=== PATIENT | male | born 1985 | race Caucasian/White ===

== ENCOUNTER 2019-05-07 14:59 | Emergency (ER) | payer OTHER ==
--- NOTE | 2019-05-07 16:31 | ER Document Report ---
ED Medical Screen (RME) - General Chief Complaint: Eye Injury Stated Complaint: RIGHT EYE INJURY Time Seen by Provider: 05/07/19 16:15 Mode of Arrival: Ambulatory Information source: Patient Notes: Otherwise healthy 33-year-old male presenting with concern for possible foreign body in his right eye. Patient reports he was working on some metal earlier today when he believes this occurred. He states there is a foreign body at the 3:00 location of the right eye. Denies any visual disturbance, denies any pain. Black speck noted at the 3 o'clock position on the eye. I have greeted and performed a rapid initial assessment of this patient. A comprehensive ED assessment and evaluation of the patient, analysis of test results and completion of the medical decision making process will be conducted by additional ED providers. I have specifically instructed the patient or family members with the patient to immediately return to any nursing staff should anything change in the patient's condition or with their chief complaint. - Related Data Allergies/Adverse Reactions: No Known Allergies Allergy (Verified 05/07/19 16:05) Past Medical History - Social History Frequency of alcohol use: None Drug Abuse: None Physical Exam - Vital signs Vitals: Temp Pulse Resp BP Pulse Ox 97.8 F 76 16 132/83 H 98 05/07/19 15:13 05/07/19 15:13 05/07/19 15:13 05/07/19 15:13 05/07/19 15:13 Course - Vital Signs Vital signs: Temp Pulse Resp BP Pulse Ox 97.8 F 76 16 132/83 H 98 05/07/19 15:13 05/07/19 15:13 05/07/19 15:13 05/07/19 15:13 05/07/19 15:13
[2019-05-07] MEDS ORDERED: TETRACAINE HCL 0.5% OPH SOLN 4 ML OD ONE (18:54)
--- NOTE | 2019-05-07 19:21 | ER Document Report ---
ED General - General Chief Complaint: Eye Injury Stated Complaint: RIGHT EYE INJURY Time Seen by Provider: 05/07/19 16:15 Primary Care Provider: EGOVANNA REID DO [ACTIVE STAFF] - Follow up tomorrow (Call tomorrow morning at 8am. ) [facility] - Follow up in 3-5 days Mode of Arrival: Ambulatory Notes: 33-year-old male presents with foreign body in his right eye. Patient states he was working on some metal and was wearing eye protection. Patient states he did not notice the foreign body but states someone else noticed it and told him about it. Patient denies wearing any glasses or contacts currently. Patient denies any visual changes. - Related Data Allergies/Adverse Reactions: No Known Allergies Allergy (Verified 05/07/19 16:05) Past Medical History - General Information source: Patient - Social History Smoking Status: Current Every Day Smoker Frequency of alcohol use: None Drug Abuse: None Family History: None Patient has suicidal ideation: No Patient has homicidal ideation: No Review of Systems - Review of Systems Notes: Constitutional: Negative for fever. HENT: Negative for sore throat. Eyes: Positive for foreign body sensation/eye pain. Negative for visual changes. Cardiovascular: Negative for chest pain. Respiratory: Negative for shortness of breath. Gastrointestinal: Negative for abdominal pain, vomiting or diarrhea. Genitourinary: Negative for dysuria. Musculoskeletal: Negative for back pain. Skin: Negative for rash. Neurological: Negative for headaches, weakness or numbness. 10 point ROS negative except as marked above and in HPI. Physical Exam - Vital signs Vitals: Temp Pulse Resp BP Pulse Ox 97.8 F 76 16 132/83 H 98 05/07/19 15:13 05/07/19 15:13 05/07/19 15:13 05/07/19 15:13 05/07/19 15:13 - Notes Notes: GENERAL: Well-appearing, well-nourished and in no acute distress. HEAD: Atraumatic, normocephalic. EYES: Right conjunctiva mildly erythematous, 0.1 mm foreign body seen at 3'o clock position. Fluorescein exam reveals no corneal abrasion or ulcer. No dendrites seen. Pupils equal round and reactive to light, extraocular movements intact, sclera anicteric, L conjunctiva are normal. NECK: Normal range of motion, supple without lymphadenopathy or JVD. EXTREMITIES: Normal range of motion, no pitting or edema. No clubbing or cyanosis. NEUROLOGICAL: Cranial nerves II through XII grossly intact. Normal speech, normal gait. PSYCH: Normal mood, normal affect. SKIN: Warm, Dry, normal turgor, no rashes or lesions noted. Course - Re-evaluation Re-evalutation: 05/07/19 33-year-old male presents with obvious foreign body at 3 o'clock position in his right eye. No visual changes. Fluorescein exam reveals no corneal abrasion/ulcers or dendrites. Visual acuity within normal limits. 05/07/19 19:[address] Reid, telephone sales representative transportation aide, who recommended an antibiotic ointment and having patient call his office at 8 AM tomorrow for an appointment as soon as possible. Dr. Reid states that [facility] however patient may have to call to get approval. 05/07/19 19:[address] Reid and the importance of following up tomorrow. Patient given erythromycin ointment prescription. Strict return precautions given. Patient voices understanding and agrees with plan of care. - Vital Signs Vital signs: Temp Pulse Resp BP Pulse Ox 97.7 F 67 16 122/71 94 05/07/19 19:29 05/07/19 19:29 05/07/19 19:29 05/07/19 19:29 05/07/19 19:29 Discharge - Discharge Clinical Impression: Foreign body of right eye Qualifiers: Encounter type: initial encounter Qualified Code(s): T15.91XA - Foreign body on external eye, part unspecified, right eye, initial encounter Condition: Stable Disposition: HOME, SELF-CARE Instructions: Corneal Foreign Body ([facility]) Additional Instructions: We called Dr. Reid, the eye doctor on-call today. He recommended antibiotic ointment which was prescribed to you. He recommends calling his office at 8 AM tomorrow for follow-up tomorrow. Return immediately to ER if you start having any worsening symptoms, including visual changes, worsening pain, inability to see, or any other symptoms that are concerning to you. Prescriptions: Erythromycin Base [Erythromycin Oph 1 gm Oint Ud] 1 applic OP QID #1 tube Referrals: [facility] - Follow up in 3-5 days GEOVANNA REID DO [ACTIVE STAFF] - Follow up tomorrow (Call tomorrow morning at 8am. )
[2019-05-07 19:29] VITALS: BP 122/71
== END 2019-05-07 19:32 | disposition home or self-care (01) ==
LOC: ER 14:59
DX: T15.91XA Foreign body on external eye, part unspecified, right eye, initial encounter (principal); X58.XXXA Exposure to other specified factors, initial encounter; F17.200 Nicotine dependence, unspecified, uncomplicated
CPT/HCPCS: 99283; J3490

== ENCOUNTER 2019-09-10 18:54 | Emergency (ER) | payer OTHER ==
[2019-09-10 20:48] LABS: APPEARANCE,URINE SLIGHTLY-CLOUDY; BILIRUBIN,URINE NEGATIVE (NEGATIVE); COLOR,URINE YELLOW; GLUCOSE, URINE NEGATIVE (NEGATIVE); KETONES,URINE NEGATIVE (NEGATIVE); LEUKOCYTE ESTERASE,URINE NEGATIVE (NEGATIVE); NITRITE,URINE NEGATIVE (NEGATIVE); PROTEIN,URINE NEGATIVE (NEGATIVE); URINE SPECIFIC GRAVITY 1.002; UROBILINOGEN,URINE NEGATIVE mg/dL (<2.0)
[2019-09-10 21:02] LABS: URINE AMPHETAMINES SCREEN NEGATIVE; URINE BARBITURATES SCREEN NEGATIVE; URINE BENZODIAZEPINES SCREEN NEGATIVE; URINE COCAINE SCREEN NEGATIVE; URINE MARIJUANA (THC) SCREEN NEGATIVE; URINE METHADONE SCREEN NEGATIVE; URINE PHENCYCLIDINE SCREEN NEGATIVE
--- NOTE | 2019-09-10 21:12 | ER Document Report ---
ED General - General Chief Complaint: Suicidal Ideation Stated Complaint: ANXIETY Time Seen by Provider: 09/10/19 21:07 Primary Care Provider: [facility] [[facility]] - Follow up as needed Information source: Patient TRAVEL OUTSIDE OF THE [place] IN LAST 30 DAYS: No - HPI Onset: Other - over the last several days for SI but has been feeling depressed for months Onset/Duration: Gradual Severity: Moderate Pain Level: 3 Associated symptoms: Other - Depressed, SI Exacerbated by: Denies Relieved by: Denies Similar symptoms previously: Yes - patient has history of depression Recently seen / treated by doctor: No Notes: 33 year old male with a history of Sjogrens who is maintained on Plaquenil here in the ER for depression and suicidal ideation. The patient says he has too much going on with his life right now and he is not sure he can manage. The patient tells me he no longer wants to kill himself but he told nursing and mental health staff that he has a gun and was thinking of killing himself. - Related Data Allergies/Adverse Reactions: No Known Allergies Allergy (Verified 05/07/19 16:05) Past Medical History - General Information source: Patient - Social History Smoking Status: Current Every Day Smoker Frequency of alcohol use: Occasional Drug Abuse: None Lives with: Family Family History: None Patient has homicidal ideation: Yes Review of Systems - Review of Systems Constitutional: No symptoms reported EENT: No symptoms reported Cardiovascular: No symptoms reported Respiratory: No symptoms reported Gastrointestinal: No symptoms reported Genitourinary: No symptoms reported Male Genitourinary: No symptoms reported Musculoskeletal: No symptoms reported Skin: No symptoms reported Hematologic/Lymphatic: No symptoms reported Neurological/Psychological: Depression, Suicidal ideation -: Yes All other systems reviewed and negative Physical Exam - Vital signs Vitals: Temp Pulse Resp BP Pulse Ox 98.1 F 77 18 117/82 97 09/10/19 19:02 09/10/19 19:02 09/10/19 19:02 09/10/19 19:02 09/10/19 19:02 - Notes Notes: GENERAL: Well-appearing, well-nourished and in distress due to psychiatric reasons. HEAD: Atraumatic, normocephalic. EYES: Pupils equal round and reactive to light, extraocular movements intact, sclera anicteric, conjunctiva are normal. ENT: TMs normal, nares patent, oropharynx clear without exudates. Moist mucous membranes. NECK: Normal range of motion, supple without lymphadenopathy or JVD. LUNGS: Breath sounds clear to auscultation bilaterally and equal. No wheezes rales or rhonchi. HEART: Regular rate and rhythm without murmurs, rubs or gallops. ABDOMEN: Soft, nontender, normoactive bowel sounds. No guarding, no rebound. No masses appreciated. EXTREMITIES: Normal range of motion, no pitting or edema. No clubbing or cyanosis. NEUROLOGICAL: Cranial nerves II through XII grossly intact. Normal speech, normal gait. PSYCH: Depressed, active SI with a plan. SKIN: Warm, Dry, normal turgor, no rashes or lesions noted. Course - Re-evaluation Re-evalutation: 09/10/19 21:39 The patient is here for suicidal ideation and depression. Mental Health saw the patient and they think he needs inpatient care. The patient thought about leaving and when he expressed this interest Mental Health requested I fill out the IVC paperwork. Plan is for patient to be medically cleared and then likely psych placement. Patient is a [facility] so [facility]. 09/11/19 00:20 The patient is medically clear and awaiting psych dispo at this time. - Vital Signs Vital signs: Temp Pulse Resp BP Pulse Ox 98.1 F 77 18 117/82 97 09/10/19 19:37 09/10/19 19:02 09/10/19 19:02 09/10/19 19:02 09/10/19 19:02 - Laboratory Result Diagrams: 09/10/19 21:50 09/10/19 21:50 Laboratory results interpreted by me: 09/10/19 21:50 Potassium 3.4 L BUN 3 L Salicylates < 1.0 L Acetaminophen < 10 L Discharge - Discharge Clinical Impression: Suicidal ideation Condition: Stable Disposition: OTHER Referrals: [facility] [[facility] - Follow up as needed
[2019-09-10] MEDS ORDERED: HALOPERIDOL 5 MG TABLET PO PRN (21:36)
[2019-09-10] MEDS ORDERED: HALOPERIDOL LACTATE INJ 5 MG/1 ML VIAL IM PRN (21:36)
[2019-09-10] MEDS ORDERED: BUSPIRONE HCL 10 MG TABLET PO SCH (22:00)
[2019-09-10] MEDS ORDERED: CLONIDINE HCL 0.1 MG TABLET PO SCH (22:00)
[2019-09-10] MEDS ORDERED: VENLAFAXINE HCL 25 MG TABLET PO SCH (22:00)
[2019-09-10 22:05] LABS: ABSOLUTE BASOPHILS # (AUTO) 0.1 10^3/uL (0.0-0.2); ABSOLUTE EOSINOPHILS # (AUTO) 0.3 10^3/uL (0.0-0.6); ABSOLUTE LYMPHOCYTES (AUTO) 3.5 10^3/uL (0.5-4.7); ABSOLUTE MONOCYTES (AUTO) 0.5 10^3/uL (0.1-1.4); ABSOLUTE NEUT (AUTO) 4.6 10^3/uL (1.7-8.2); BASOPHILS % (AUTO) 0.6 % (0-2); EOSINOPHILS % (AUTO) 3.7 % (0-6); HEMATOCRIT 44.1 % (37.9-51.0); HEMOGLOBIN 15.7 g/dL (13.5-17.0); LYMPHOCYTES % (AUTO) 39.1 % (13-45); MEAN CORPUSCULAR HEMOGLOBIN 32.3 pg (27.0-33.4); MEAN CORPUSCULAR HGB CONC 35.6 g/dL (32.0-36.0); MEAN CORPUSCULAR VOLUME 91 fl (80-97); MONOCYTES % (AUTO) 5.5 % (3-13); PLATELET COUNT 217 10^3/uL (150-450); RED BLOOD COUNT 4.85 10^6/uL (4.35-5.55); RED CELL DISTRIBUTION WIDTH 12.6 % (11.5-14.0); SEGMENTED NEUTROPHILS % (AUTO) 51.1 % (42-78); TOTAL CELLS COUNTED % (AUTO) 100 %
[2019-09-10 22:26] LABS: ALBUMIN 4.4 g/dL (3.5-5.0); ALKALINE PHOSPHATASE 59 U/L (38-126); ANION GAP 7 (5-19); ASPARTATE AMINO TRANSFERASE 24 U/L (17-59); BILIRUBIN,TOTAL 0.6 mg/dL (0.2-1.3); BLOOD UREA NITROGEN 3 mg/dL (7-20); CALCIUM 9.7 mg/dL (8.4-10.2); CARBON DIOXIDE 30 mmol/L (22-30); CHLORIDE 102 mmol/L (98-107); GLUCOSE 102 mg/dL (75-110); POTASSIUM 3.4 mmol/L (3.6-5.0); TOTAL PROTEIN 7.4 g/dL (6.3-8.2)
[2019-09-10 22:27] LABS: ACETAMINOPHEN < 10 ug/mL (10-30); ALCOHOL < 10 mg/dL (NONE DETECTED); SALICYLATE < 1.0 mg/dL (2.0-20.0)
[2019-09-11] MEDS ORDERED: VENLAFAXINE HCL 25 MG TABLET ONE (00:39)
--- NOTE | 2019-09-11 06:58 | PSYCHOLOGICAL NOTE ---
Psych Note - Psych Note Date seen by psych provider: 09/10/19 Time seen by psych provider: 19:45 - [id number] Psych Note: Presenting Problem: Patient is a 33 year old male who presented to the [facility] ED today via EMS after [facility] called them due to suicidal ideation. Patient told Attending ED Nurse he's been depressed and was feeling hopeless and worthless earlier, and admitted to suicidal ideation with plan to shoot self in the head with his 9MM. UDS negative for all substances tested for. Patient was standing in the far back left corner of room. He remained there during evaluation. Patient identified he saw his [place] counselor this morning, was having a panic attack that worsened throughout the day, tried calling [facility] counselor later but spoke to a different therapist who recommended he go to [facility]. He stated he was in the ED because "I'm sad, I had appointment with my counselor at the [facility] this morning, had a panic attack all day that worsened throughout the day, I called my [place] counselor again but spoke to a different counselor Luis who recommended I go to [facility] so I did and ended up here." Patient acknowledged anxiety and panic attacks stating "I usually have them under control." When asked about being on medication for the anxiety, depression or anything else he said "I am on medication for nightmares, but I haven't gone anywhere to get medications." Patient was tearful throughout evaluation. When asked about thoughts of wanting to hurt/harm/kill self he said in a soft almost whispered tone "I don't want to." When asked if he has the thoughts he nodded yes and began crying more. He denied previous SI attempts. He acknowledged he was hospitalized "when I was younger for anxiety now that you mention it." He stated he was in the [facility] for 15 years and has been out for 3 years now. When asked about his openness to medication he stated "I want to be happy, I miss my daughter, I miss seeing her everyday, She lives with her mother here in [place], I miss my girls." When asked when his family separa lewis he said "December." When made aware of IVC and plan of care patient became irritable. He stated he "just had a bad day and feels better now." During this time he was in the bed. He commented "everyone has SI thoughts who doesn't." He was confronted about having thoughts, a plan, means and access. When reminded he told medical staff he was going to shoot self in head with his 9MM he responded "it's the only weapon I have." Patient was alert and oriented to self, person, place, time and situation. Mood was depressed with congruent affect as evidenced by tearful and crying. Presentation seemed guarded via body language (standing in far back left corner of room, slow to respond at first) but did answer all questions when addressed. He endorsed suicidal ideation to medical staff saying he had a plan to shoot self in the head with his 9MM, told this clinician "I don't want to" but admitted to having thoughts and denied previous attempts. Patient did not appear to be responding to internal stimuli as evidenced by fair eye contact and answering questions appropriately when addressed. Thought processes were linear. Conversational speech was within normal limits for rate, tone and prosody. Intellectual abilities are estimated to be average. Insight, judgment and impulse control were poor as evidenced by increased depression and anxiety with suicidal ideation (plan to shoot self in head with his 9MM). Diagnosis: Suicidal Ideation with plan to shoot self in head with his 9MM History of PTSD and Anxiety per patient Medication recommendations made by the psychiatric medication provider Dr. Arti ARANGO., includes: Add Buspar 5MG Po twice a day for anxiety/calming effect/depression/sleep Add Effexor 37.5MG PO twice a day for depression/focus/increase energy Add Clonidine 0.1MG PO at night for sleep/nightmares Add Haldol 5MG PO/IM every six hours as needed for agitation/anxiety Impression/Plan: Recommendation for FULL IVC. Patient endorsed to medical staff increased depression, feelings of worthlessness and hopelessness, as well as suicidal ideation with a plan to shoot self in head with his 9MM. Patient has a history of PTSD, Anxiety and Depression. He reported he is only on medication for nightmares and hasn't been anywhere for other medications (he told medical staff he hasn't had medication since June, it was for PTSD but it was not working per documentation). He reported he spoke to his counselor at the [facility] today due to panic attack that worsened throughout the day and had been instructed to go to [facility] which he did. Consulted with Dr. Garcia regarding the management and care of patient. ED Physician in agreement with recommendations.
[2019-09-11 15:18] VITALS: BP 124/70
--- NOTE | 2019-09-11 15:20 | ER Document Report ---
Doctor's Note Notes: 09/11/19 15:19 Patient continues to state that he frequently thinks about being suicidal and does not understand why this is a problem. Patient continues to state that he does not think this is unusual. States that he thinks everybody thinks about killing themselves. Patient has no insight into his disease process at this time. Patient has been accepted to the [facility]. Patient will be transported. Law enforcement is here for transport at this time. GENERAL: Alert, interacts well. No acute distress. HEAD: Normocephalic, atraumatic EYES: Pupils equal, round and reactive to light, extraocular movements intact. ENT: Oral mucosa moist, tongue midline. NECK: Full range of motion, supple, trachea midline. LUNGS: no respiratory distress. EXTREMITIES: Moves all 4 extremities spontaneously, no edema. No cyanosis. NEUROLOGICAL: Alert and oriented x3, normal speech. PSYCH: Angry . SKIN: Warm, Dry, normal turgor, no rashes or lesions noted.
--- NOTE | 2019-09-11 15:32 | EKG REPORT ---
SEVERITY:- ABNORMAL ECG - SINUS RHYTHM ST ELEVATION SUGGESTS NORMAL VARIANT : Confirmed by: Adan Aragon MD 11-Sep-2019 15:32:29
== END 2019-09-11 15:32 | disposition other institution (70) ==
LOC: ER 18:54
DX: R45.851 Suicidal ideations (principal); F41.9 Anxiety disorder, unspecified; F32.9 Major depressive disorder, single episode, unspecified; Z79.899 Other long term (current) drug therapy; F17.200 Nicotine dependence, unspecified, uncomplicated
CPT/HCPCS: 93005; 99285; 36415; 80307 ×4; 85025; 80053; 81001; 93010; J3490